=== PATIENT | male | born 1950 | race Caucasian/White ===

== ENCOUNTER 2018-01-24 09:00 | Outpatient (CLI) | payer OTHER ==
[~2018-01-24] VITALS: Ht 188 cm; Wt 117.0 kg
[2018-01-24] MEDS ORDERED: LISI40TA PO (09:14)
[2018-01-24] MEDS ORDERED: TAMS0.4C2 PO (09:14)
[2018-01-24] MEDS ORDERED: INSU100I10 SQ (09:14)
[2018-01-24] MEDS ORDERED: METF10002 PO (09:14)
[2018-01-24] MEDS ORDERED: GABA-488 PO (09:14)
[2018-01-24] MEDS ORDERED: ISM60TCR PO (09:14)
[2018-01-24] MEDS ORDERED: SPIR25TA5 PO (09:14)
[2018-01-24] MEDS ORDERED: PRAV40TA2 PO (09:14)
[2018-01-24] MEDS ORDERED: CARV25TA PO (09:14)
[2018-01-24] MEDS ORDERED: LORA10TA7 PO (09:14)
[2018-01-24] MEDS ORDERED: INSU100I14 SQ (09:14)
[2018-01-24] MEDS ORDERED: GLIP5TAB13 PO (09:14)
[2018-01-24] MEDS ORDERED: GEMF600T4 PO (09:14)
[2018-01-24] MEDS ORDERED: ASPI-586 PO (09:14)
[2018-01-24] MEDS ORDERED: RANI-515 PO (09:14)
== END 2018-01-24 09:16 | disposition home or self-care (01) ==
LOC: PREOP 09:00
PROVIDERS: ATTEND Surgery
DX: Z01.818 Encounter for other preprocedural examination (principal)

== ENCOUNTER 2018-01-28 07:59 | Day surgery (SDC) | payer MEDICARE, OTHER ==
[~2018-01-28] VITALS: Ht 188 cm; Wt 117.0 kg
[~2018-01-28 07:59] MED LIST: ASPI-586 PO; CARV25TA PO; GABA-488 PO; GEMF600T4 PO; GLIP5TAB13 PO; INSU100I10 SQ; INSU100I14 SQ; ISM60TCR PO; LISI40TA PO; LORA10TA7 PO; METF10002 PO; PRAV40TA2 PO; RANI-515 PO; SPIR25TA5 PO; TAMS0.4C2 PO
[2018-01-28] MEDS ORDERED: LACTATED RINGERS 1,000 ML IV ONE (08:05)
[2018-01-28] MEDS ORDERED: LACTATED RINGERS 1,000 ML IV STA (08:33)
[2018-01-28 08:40] VITALS: BP 122/69
[2018-01-28] MEDS ORDERED: PROPOFOL INJECTION 0 ML IV ONE (09:40)
[2018-01-28] MEDS ORDERED: MIDAZOLAM 2 MG/2 ML (VERSED) VIAL ONE (09:41)
--- NOTE | 2018-01-28 09:41 | Progress Note-Pre Operative ---
Pre-Operative Progress Note H&P Reviewed The H&P was reviewed, patient examined and no changes noted. Time Seen by Provider: 09:38 Date H&P Reviewed: Jan 28, 2018 Time H&P Reviewed: 09:39 Pre-Operative Diagnosis: GI bleed, Hx of polyps MARCOS TOMLINSON DO Jan 28, 2018 09:41
[2018-01-28] MEDS ORDERED: PROPOFOL INJECTION 50 ML IV ONE (10:30)
--- NOTE | 2018-01-28 10:46 | Progress Note-Post Operative ---
Post-Operative Progess Note Surgeon (s)/Transmission Builder (s) Surgeon MARCOS TOMLINSON DO Transmission Builder: Tristan Madsen MSIII Pre-Operative Diagnosis GI bleed, Hx of polyps Post-Operative Diagnosis Polyps AVM Diverticula Int Hem Procedure & Operative Findings Date of Procedure 01/28/18 Procedure Performed/Findings Colon with snare Anesthesia Type IV sedation by ICE CREAM FREEZER ASSISTANT Estimated Blood Loss Estimated blood loss (mL): scant Specimens/Packing Specimens Removed Polyps MARCOS TOMLINSON DO Jan 28, 2018 10:45
--- NOTE | 2018-01-28 10:47 | Endoscopy Discharge Instruct ---
Endo Procedure/Findings Findings 1.: Polyp 2.: Diverticulosis 3.: Internal Hemorrhoids 4.: Vascular Ectasias Discharge Instructions - Activity: You might feel a little sleepy until tomorrow. This is due to the medicine you received to relax you. Until tomorrow, you should: NOT drive a car, operate machinery or power tools. NOT drink any alcoholic beverages. NOT make any important decisions or sign importortant papers. Do not return to work until tomorrow, unless otherwise instructed. Resume previous activities tomorrow. Diet: Start by taking liquids. If you tolerate liquids, advance to solid food. Make appointment for 2 weeks Instructions: 1.: Colonscopy in 3 years Notify Physician - If you experience excessive bleeding, unusual abdominal pain, fever, or chest pain, contact your doctor immediately. Follow-Up: - I have received and understand the above instructions and will call my doctor if I have any further questions. Patient Signature Date Nurse Signature Other (Relationship) MARCOS TOMLINSON DO Jan 28, 2018 10:47
[2018-01-28 11:00] VITALS: BP 129/77
[2018-01-28 11:26] VITALS: BP 129/77
[2018-01-28 11:30] VITALS: BP 129/77
--- NOTE | 2018-01-28 12:25 | Anesthesia-General Post-Op ---
MAC Patient Condition Mental Status/LOC: Same as Preop Cardiovascular: Satisfactory Nausea/Vomiting: Absent Respiratory: Satisfactory Pain: Controlled Complications: Absent Post Op Complications Complications None Follow Up Care/Instructions Patient Instructions None needed. Anesthesiology Discharge Order Discharge Order Patient is doing well, no complaints, stable vital signs, no apparent adverse anesthesia problems. No complications reported per nursing. KELI ABRAMS CRNA Jan 28, 2018 12:25
--- NOTE | 2018-01-29 02:08 | OPERATIVE REPORT ---
DATE OF SERVICE: PREOPERATIVE DIAGNOSES: Rectal bleed, history of polyps. POSTOPERATIVE DIAGNOSES: 1. Colon polyps. 2. Arteriovenous malformation. 3. Diverticula. 4. Internal hemorrhoids. PROCEDURE: Colonoscopy with snare polypectomy. SURGEON: Anthony Yanes DO. DOORPERSON OR LUGGAGE PORTER: Andrew Elizabeth, medical student level 3. ANESTHESIA: IV sedation by the ROUNDING MACHINE OPERATOR. SPECIMEN: Polyps from the cecum as well as ascending colon and descending colon. BLOOD LOSS: Scant. FLUIDS: Per anesthesia. POSTOPERATIVE CONDITION: Stable. INDICATION FOR PROCEDURE: The patient is a 67-year-old male who has been having some bleeding and history of colon polyps, needed colonoscopy. FINDINGS: The patient had some AVM seen in the cecum, some polyps seen in the cecum as well as in the ascending and descending colon, some diverticula and some internal hemorrhoids. Pictures were taken. PROCEDURE NOTE: After informed consent was obtained, the patient was brought to the endoscopy suite and placed in the left lateral decubitus position. He was administered IV sedation by the ROUNDING MACHINE OPERATOR, who then monitored his vitals the entire time, heart rate, blood pressure and pulse ox and the scope was inserted, pushed in all the way to about 150 cm, able to get to the cecum, took a picture of appendiceal orifice and then noted what looked like some arteriovenous malformation, took a picture of this and then noticed some polyps, they had some blood vessels on them, removed one of these in the cecum and then pulled back and saw two polyps in the ascending colon, removed these, and then slowly withdrew the scope insufflating to look circumferentially at the vega, has started in the cecum then up into the ascending colon to the hepatic flexure, then down the transverse colon, splenic flexure, into the descending colon, saw another polyp, did snare polypectomy and then continued down into the sigmoid and into the rectum. Through the descending colon and sigmoid, saw some diverticula and took a picture. Retroflexed the scope in the rectal vault, saw some internal hemorrhoids, took a picture of this and then removed the scope. The patient tolerated the procedure. He was recovered in endoscopy suite and then sent home. Job ID: [id number] DocumentID: [id number] Dictated Date: 01/28/2018 17:49:09 [employer] Business Analyst Date: 01/29/2018 02:07:49 Dictated By: ANTHONY YANES DO [facility]
== END 2018-01-28 11:31 | disposition home or self-care (01) ==
LOC: ENDO 07:59
PROVIDERS: ATTEND Surgery
DX: D12.3 Benign neoplasm of transverse colon (principal); D12.4 Benign neoplasm of descending colon; D18.03 Hemangioma of intra-abdominal structures; K55.20 Angiodysplasia of colon without hemorrhage; K57.30 Diverticulosis of large intestine without perforation or abscess without bleeding; K64.8 Other hemorrhoids; I25.10 Atherosclerotic heart disease of native coronary artery without angina pectoris; I10 Essential (primary) hypertension; E11.9 Type 2 diabetes mellitus without complications; Z87.891 Personal history of nicotine dependence; Z79.4 Long term (current) use of insulin; Z79.82 Long term (current) use of aspirin; Z95.1 Presence of aortocoronary bypass graft
CPT/HCPCS: 82962